=== PATIENT | female | born 1950 | race Two or more races ===

== ENCOUNTER 2018-06-06 10:11 | Outpatient (CLI) | payer OTHER | END 2018-06-06 10:21 | disposition home or self-care (01) | LOC: MAMO-SONO 10:11 | DX: Z12.31 Encounter for screening mammogram for malignant neoplasm of breast (principal); Z87.898 Personal history of other specified conditions; N64.89 Other specified disorders of breast ==

== ENCOUNTER → 2019-01-02 | Outpatient (CLI) | payer OTHER | END | disposition home or self-care (01) | LOC: NUCLEAR 12-25 14:00 | DX: M81.0 Age-related osteoporosis without current pathological fracture (principal) ==